=== PATIENT | male | born 1985 | race Caucasian/White ===

== ENCOUNTER 2017-08-02 09:45 | Emergency (ER) | payer BC ==
[~2017-08-02] VITALS: Ht 185.4 cm; Wt 81.6 kg
[2017-08-02 10:16] VITALS: BP 146/74
[2017-08-02 10:53] LABS: BASOPHILS % (AUTO) 0.4 % (0.0-2.0); EOSINOPHILS % (AUTO) 0.2 % (0.0-3.0); LYMPHOCYTES % (AUTO) 13.3 % (20.0-45.0); MEAN CORPUSCULAR HEMOGLOBIN 31.5 PG (27.0-31.0); MEAN CORPUSCULAR VOLUME 90 FL (80-99); MEAN PLATELET VOLUME 8.3 FL (6.5-10.1); MONOCYTES % (AUTO) 4.9 % (1.0-10.0); NEUTROPHILS % (AUTO) 81.2 % (45.0-75.0); PLATELET COUNT 246 K/UL (150-450); RED BLOOD COUNT 5.28 M/UL (4.70-6.10); RED CELL DISTRIBUTION WIDTH 10.1 % (11.6-14.8); WHITE BLOOD COUNT 7.8 K/UL (4.8-10.8)
[2017-08-02 11:07] LABS: ALANINE AMINOTRANSFERASE 15 U/L (3-41); ALBUMIN/GLOBULIN RATIO 1.3 (1.0-2.7); ANION GAP 12 (5-15); ASPARTATE AMINO TRANSFERASE 17 U/L (5-40); CALCIUM 9.7 mg/dL (8.6-10.2); CARBON DIOXIDE 28 mEQ/L (20-30); CHLORIDE 96 mEQ/L (98-107); CREATININE 1.1 mg/dL (0.7-1.2); GLOMERULAR FILTRATION RATE > 60 mL/min (>60); HEMOLYSIS 7; LIPASE 25 U/L (< 60); SODIUM 136 mEQ/L (135-145); TOTAL PROTEIN 7.9 g/dL (6.6-8.7)
[2017-08-02 11:16] VITALS: BP 140/79
[2017-08-02 11:19] LABS: BILIRUBIN,DIRECT 0.3 mg/dL (0.1-0.3)
[2017-08-02 12:16] VITALS: BP_SYST 137; BP_SYST 140; BP_DIAS 79; BP_DIAS 86
[2017-08-02 12:21] LABS: APPEARANCE,URINE SLIGHTLY CLOUDY; KETONES,URINE 4+ (NEGATIVE); LEUKOCYTE ESTERASE ,URINE 1+ (NEGATIVE); NITRITE,URINE NEGATIVE (NEGATIVE); PH,URINE 6 (4.5-8.0); PROTEIN,URINE 1+ (NEGATIVE); UROBILINOGEN,URINE NORMAL MG/DL (0.0-1.0)
[2017-08-02 12:42] LABS: BACTERIA,URINE FEW /HPF; MUCUS,URINE MODERATE /LPF (NONE/OCC); SQUAMOUS EPITHELIAL CELL,UR OCCASIONAL /LPF (NONE/OCC)
[2017-08-02 13:12] VITALS: BP 137/86
[2017-08-02 13:36] VITALS: BP 133/86
--- NOTE | 2017-08-02 14:43 | Emergency Room Report ---
History of Present Illness General Chief Complaint: Gastrointestinal Bleed Source: Patient Present Illness HPI 31-year-old male with no significant past medical history presenting with 2 days of bloody diarrhea. Patient states he went to a wedding in [place], came back to [place] and had more than 6 episodes of watery and bloody diarrhea per day. This is associated with mild lower abdominal cramping which is relieved when he has diarrhea. Patient denying any fever chills, diaphoresis, nausea or vomiting. Patient does not take any blood thinners. There are no sick contacts. No prior colonoscopies. Patient states he went to urgent care yesterday and received ciprofloxacin. Patient took one dose. Allergies: Coded Allergies: No Known Allergies (Unverified , 08/02/17) Patient History Past Medical History: see triage record Past Surgical History: none Pertinent Family History: none Reviewed Nursing Documentation: PMH: Agreed, PSxH: Agreed Nursing Documentation-PM Past Medical History: No Stated History Review of Systems All Other Systems: negative except mentioned in HPI Physical Exam Vital Signs Date Time Temp Pulse Resp B/P (MAP) Pulse Ox O2 Delivery O2 Flow Rate FiO2 08/02/17 09:56 98.2 95 16 154/77 100 Room Air 08/02/17 10:05 100 Sp02 EP Interpretation: reviewed, normal General Appearance: normal inspection, alert, GCS 15, non-toxic Head: normocephalic, atraumatic Eyes: bilateral eye normal inspection, bilateral eye PERRL, bilateral eye EOMI ENT: normal ENT inspection, normal pharynx, normal voice, dry mucus membranes Neck: normal inspection, full range of motion, supple Respiratory: normal inspection, lungs clear, normal breath sounds, no respiratory distress, no retraction, no wheezing, speaking full sentences, chest symmetrical Cardiovascular #1: normal inspection, regular rate, rhythm, no edema, normal capillary refill Cardiovascular #2: 2+ radial (R), 2+ radial (L) Gastrointestinal: normal inspection, non tender, soft, non-distended, no guarding, other - Hyperactive bowel sounds, nontender all quadrants the abdomen Rectal: other - Bloody stool noted Genitourinary: no CVA tenderness Musculoskeletal: normal inspection, back normal, normal range of motion, non- tender Neurologic: normal inspection, alert, oriented x3, responsive, motor strength/ tone normal, sensory intact, normal gait, speech normal Psychiatric: normal inspection, judgement/insight normal, memory normal Skin: normal inspection, normal color, no rash, warm/dry, well hydrated, normal turgor Medical Decision Making Diagnostic Impression: Primary Impression: Bloody diarrhea ER Course 31 yo M with bloody diarrhea for 2 days DDX: Bacterial colitis, viral gastroenteritis, diverticulosis, diverticulitis Plan: Obtain labs, stool culture IV fluids, Zofran At this time abdomen is soft nontender, no concern with acute surgical intra- abdominal pathology, we'll hold CT for now ER course: Patient has remained stable during ED stay.atient's repeat blood pressures have bn within normal limits and stable. Repeat abdominal exam soft nontender Patient had about 2 episodes of bloody diarrhea in the emergency room. No episodes of vomiting Patient was treated with IV fluids. Patient's vital signs remained stable. Patient has been ambulating around the ER on his own without difficulty, no dizziness, continues to appear nontoxic. Disposition: Patient is to be discharged to home. Kaitlin decision making discussed with patient and his , I offered patient to be admitted to the hospital for routine blood tests, IV hydration, and nausea control. Patient states that he would rather go home as he would have a private bathroom, and it is uncomfortable for him to stay in the emergency room. Patient and his seem very reliable, and. Strict return precautions were discussed with them, such as severe abdominal pain, dizziness, shortness of breath, lightheadedness, profuse bloody diarrhea. Patient was instructed to continue to take his oral ciprofloxacin without fail. Patient is also instructed to followup with his primary care doctor for checkup in 2 days Patient is instructed to follow up with their primary care doctor within 5 days. Please note that this Emergency Department Report was dictated using [employer] radiation technology software, occasionally this can lead to erroneous entry secondary to interpretation by the dictation equipment Laboratory Tests Test 08/02/17 10:13 08/02/17 10:36 08/02/17 10:45 White Blood Count 7.8 K/UL (4.8-10.8) Red Blood Count 5.28 M/UL (4.70-6.10) Hemoglobin 16.6 G/DL (14.2-18.0) Hematocrit 47.6 % (42.0-52.0) Mean Corpuscular Volume 90 FL (80-99) Mean Corpuscular Hemoglobin 31.5 PG (27.0-31.0) H Mean Corpuscular Hemoglobin Concent 35.0 G/DL (32.0-36.0) Red Cell Distribution Width 10.1 % (11.6-14.8) L Platelet Count 246 K/UL (150-450) Mean Platelet Volume 8.3 FL (6.5-10.1) Neutrophils (%) (Auto) 81.2 % (45.0-75.0) H Lymphocytes (%) (Auto) 13.3 % (20.0-45.0) L Monocytes (%) (Auto) 4.9 % (1.0-10.0) Eosinophils (%) (Auto) 0.2 % (0.0-3.0) Basophils (%) (Auto) 0.4 % (0.0-2.0) Sodium Level 136 mEQ/L (135-145) Potassium Level 4.0 mEQ/L (3.4-4.9) Chloride Level 96 mEQ/L (98-107) L Carbon Dioxide Level 28 mEQ/L (20-30) Anion Gap 12 (5-15) Blood Urea Nitrogen 10 mg/dL (7-23) Creatinine 1.1 mg/dL (0.7-1.2) Estimate Glomerular Filtration Rate > 60 mL/min (>60) Glucose Level 112 mg/dL (74-106) H Calcium Level 9.7 mg/dL (8.6-10.2) Total Bilirubin 2.2 mg/dL (0.0-1.2) H Direct Bilirubin 0.3 mg/dL (0.1-0.3) Aspartate Amino Transferase (AST) 17 U/L (5-40) Alanine Aminotransferase (ALT) 15 U/L (3-41) Alkaline Phosphatase 63 U/L (40-129) Total Protein 7.9 g/dL (6.6-8.7) Albumin 4.5 g/dL (3.5-5.2) Globulin 3.4 g/dL Albumin/Globulin Ratio 1.3 (1.0-2.7) Lipase 25 U/L (< 60) Stool Occult Blood Positive (NEGATIVE) Urine Color Yellow Urine Appearance Slightly cloudy Urine pH 6 (4.5-8.0) Urine Specific [place] 1.020 (1.005-1.035) Urine Protein 1+ (NEGATIVE) H Urine Glucose (UA) Negative (NEGATIVE) Urine Ketones 4+ (NEGATIVE) H Urine Occult Blood 1+ (NEGATIVE) H Urine Nitrite Negative (NEGATIVE) Urine Bilirubin Negative (NEGATIVE) Urine Urobilinogen Normal MG/DL (0.0-1.0) Urine Leukocyte Esterase 1+ (NEGATIVE) H Urine RBC 2-4 /HPF (0 - 0) H Urine WBC 2-4 /HPF (0 - 0) Urine Squamous Epithelial Cells Occasional /LPF Urine Bacteria Few /HPF (NONE) Urine Mucus Moderate /LPF (NONE/OCC) H Rhythm Strip Diag. Results EP Interpretation: yes Rate: 70 Rhythm: NSR, no PVC's, no ectopy Last Vital Signs Date Time Temp Pulse Resp B/P (MAP) Pulse Ox O2 Delivery O2 Flow Rate FiO2 08/02/17 13:36 87 16 133/86 98 Room Air 08/02/17 13:12 99.1 08/02/17 10:05 100 Disposition: HOME, SELF-CARE Condition: Improved Patient Instructions: Bloody Diarrhea Additional Instructions: Please follow up with your primary care doctor within 3 days. Please continue to take your ciprofloxacin medication as directed. Please come back to the emergency room if you are having worsening pain, headache, chest pain, shortness of breath, or nausea or vomiting, profuse bloody diarrhea, dizziness, or fainting Daryn Hay M.D. Aug 02, 2017 14:43
== END 2017-08-02 13:36 | disposition home or self-care (01) ==
LOC: EMR 10:23
DX: R19.7 Diarrhea, unspecified (principal); K92.1 Melena
CPT/HCPCS: 36415; 80053; 81003; 82248; 82270; 83690; 85025; 87045; 96360; 96361; 99284